=== PATIENT | female | born 1995 | race Caucasian/White ===

== ENCOUNTER 2017-05-21 16:10 | Emergency (ER) | payer SELFPAY ==
[2017-05-21 16:33] VITALS: BP 134/68; PULSE 74; TEMP 97.9; BMI 18.4
--- NOTE | 2017-05-21 17:18 | PDOC ---
History of Present Illness - General History Source: Patient Exam Limitations: No Limitations - History of Present Illness Initial Comments: 05/21/17 17:19 The patient is a 21 year old female, with no significant past medical history, who presents to the emergency department s/p ring finger injury earlier today. The patient reports she was at work when she cut her right hand ring finger with glass. Patient unsure whether there is any remaining glass in her finger. She denies any numbness, tingling, or decreased sensation at the right ring finger or in her hand. She denies any associated active bleeding, erythema, or discharge. She denies any fever or chills. She denies any nausea or vomiting. She denies any other trauma. Patient up to date with tetanus shot. Allergies: NKDA Social History: Social ETOH use. Non smoker. No recreational drug use. <Radhika Isabel - Last Filed: 05/21/17 17:52> <Sagar Edwards - Last Filed: 05/25/17 07:46> - General Chief Complaint: Injury Stated Complaint: RIGHT RING FINGER LACERATION Time Seen by Provider: 05/21/17 17:11 Past History <Radhika Isabel - Last Filed: 05/21/17 17:52> - Past Medical History COPD: No - Immunization History Immunization Up to Date: Yes - Suicide/Smoking/Psychosocial Hx Smoking History: Never smoked Hx Alcohol Use: Yes (SOCIAL) Drug/Substance Use Hx: No Substance Use Type: None <Sagar Edwards - Last Filed: 05/25/17 07:46> - Past Medical History Allergies/Adverse Reactions: Allergies Allergy/AdvReac Type Severity Reaction Status Date / Time No Known Allergies Allergy Verified 05/21/17 16:25 Home Medications: Ambulatory Orders NK [No Known Home Medication] 05/21/17 Review of Systems - Review of Systems Able to Perform ROS?: Yes Comments:: 05/21/17 17:19 CONSTITUTIONAL: Absent: fever, no chills, no fatigue EYES: Absent: visual changes ENT: Absent: ear pain, no sore throat CARDIOVASCULAR: Absent: chest pain, no palpitations RESPIRATORY: Absent: cough, no SOB GI: Absent: abdominal pain, no nausea, no vomiting, no constipation, no diarrhea GENITOURINARY: Absent: dysuria, no frequency, no hematuria MUSKULOSKELETAL: Absent: back pain, no arthralgia, no myalgia SKIN: Present: Right ring finger laceration with associated pain. Absent: rash NEURO: Absent: headache <Jessica [email or web address] - Last Filed: 05/21/17 17:52> *Physical Exam - Vital Signs Last Vital Signs Temp Pulse Resp BP Pulse Ox 97.9 F 74 15 134/68 98 05/21/17 16:24 05/21/17 16:24 05/21/17 16:24 05/21/17 16:24 05/21/17 16:24 - Physical Exam Comments: 05/21/17 17:19 GENERAL: Well-appearing, well-nourished. No apparent distress. HEENT: Normocephalic, atraumatic. PERRL, EOM intact. CARDIOVASCULAR: Normal S1, S2. Regular rate and rhythm. PULMONARY: Clear to auscultation bilaterally. EXTREMITIES: Normal ROM in all four extremities. No gross deformities. SKIN: Longitudinal 1.5 cm laceration involving the proximal and middle phalanges of the radial aspect of the right hand fourth finger. Wound was explored and was superficial involving only the epidermis. No foreign bodies were visualized or palpated. No decreased sensation to the fingertip. Tendon function was preserved with full flexion and extension of both joints againsts resistance. Warm, dry. No rash NEUROLOGICAL: No focal neurological deficits. <Jessica Isabelsabrina - Last Filed: 05/21/17 17:52> - Vital Signs Last Vital Signs Temp Pulse Resp BP Pulse Ox 97.9 F 74 15 134/68 98 05/21/17 16:24 05/21/17 16:24 05/21/17 16:24 05/21/17 16:24 05/21/17 16:24 <Sagar Edwards - Last Filed: 05/25/17 07:46> Procedures - Laceration/Wound Repair Right Hand 4th digit Wound Length: to 2.5 cm Wound Explored: clean, no foreign body present Wound's Depth, Shape: superficial Betadine Prep: Yes Wound Repaired With: Steri-strips Progress: 05/21/17 17:20 Repair finger lac wound was thoroughly scrubbed and irrigated with saline. Hemostasis with pressure. Wound edges were well approximated with steri strips, there was no further bleeding. Tube gauze was applied for splinting, and as a dressing./ Wound care instructions were given. Follow-up immediately if signs of infection. Keep clean and dry, except for Bacitracin until healed. <Radhika Isabel - Last Filed: 05/21/17 17:52> *DC/Admit/Observation/Transfer - Attestations Scribe Attestion: 05/21/17 17:20 Documentation prepared by Radhika Isabel, acting as certified medical coder for Sagar Combs MD. <Radhika Isabel - Last Filed: 05/21/17 17:52> - Discharge Dispostion Admit: No <Sagar Edwards - Last Filed: 05/25/17 07:46> Diagnosis at time of Disposition: Finger laceration Qualifiers: Encounter type: initial encounter Finger: ring finger Damage to nail status: without damage Foreign body presence: without foreign body Laterality: right Qualified Code(s): S61.214A - Laceration without foreign body of right ring finger without damage to nail, initial encounter - Discharge Dispostion Disposition: HOME Condition at time of disposition: Improved - Patient Instructions Printed Discharge Instructions: DI for Laceration Repair Steri-Strips Additional Instructions: Keep clean and dry. Change the dressing on Tuesday as directed. Use bacitracin and a Band-Aid thereafter until completely healed. Keep clean and dry and covered until healing is achieved. Recheck immediately if there is sign of infection, which may be indicated by increased pain, redness, swelling, or discolored drainage. - Post Discharge Activity Forms/Work/School Notes: Back to Work
== END 2017-05-21 17:22 | disposition home or self-care (01) ==
LOC: FER 16:10
CPT/HCPCS: 99282-25

== ENCOUNTER 2020-09-27 23:37 | Emergency (ER) | payer SELFPAY ==
[2020-09-27 23:44] VITALS: TEMP 98.6; BMI 19.1
[2020-09-28] MEDS ORDERED: ACETAMINOPHEN 500 MG TABLET (FP) ONE (00:03)
[2020-09-28] MEDS ORDERED: ACETAMINOPHEN 500 MG TABLET (FP) PO ONE (00:03)
[2020-09-28 00:20] VITALS: BP 117/82; PULSE 73
== END 2020-09-28 00:06 | disposition home or self-care (01) ==
LOC: FER 23:37
DX: T23.101A Burn of first degree of right hand, unspecified site, initial encounter (principal); T23.131A Burn of first degree of multiple right fingers (nail), not including thumb, initial encounter
CPT/HCPCS: 99283-25

== ENCOUNTER 2023-12-30 18:29 | Emergency (ER) | payer OTHER ==
[2023-12-30 18:45] VITALS: BP 110/76; PULSE 74; RESP 17; TEMP 98.1; BMI 24.3
[2023-12-30 19:26] LABS: HEMATOCRIT 38.4 % (32.4-45.2); HEMOGLOBIN 12.6 G/dL (10.7-15.3); MCH 28.1 pg (25.7-33.7); MCHC 32.9 g/dl (32.0-36.0); MEAN CELL VOLUME 85.5 fl (80-96); MEAN PLT VOLUME 8.7 fl (7.5-11.1); PLATELET COUNT 217.4 10^3/uL (134-434); RBC 4.49 10^6/uL (3.60-5.2); RDW 14.6 % (11.6-15.6); WHITE BLOOD COUNT 7.6 10^3/uL (4.0-10.8)
[2023-12-30 19:35] LABS: PLATELET ESTIMATE ADEQUATE
[2023-12-30 19:44] LABS: ALBUMIN 4.1 g/dl (3.4-5.0); BILIRUBIN,TOTAL 0.4 mg/dl (0.2-1); CALCIUM 9.3 mg/dl (8.5-10.1); CREATININE 0.6 mg/dl (0.6-1.3); POTASSIUM 3.9 mmol/L (3.5-5.1); TOT PROT 6.5 g/dl (6.4-8.2)
[2023-12-30] MEDS: ONDANSETRON 4 MG/2 ML VIAL IVPB ONE (20:50)
[2023-12-30] MEDS: SODIUM CHLORIDE 0.9% 500 ML INFUS.BAG IV ONE (20:50)
[2023-12-30] MEDS ORDERED: ONDANSETRON 4 MG/2 ML VIAL ONE (20:53)
== END 2023-12-30 21:14 | disposition home or self-care (01) ==
LOC: FER 18:29
PROC: 3E033GC Introduction of Other Therapeutic Substance into Peripheral Vein, Percutaneous Approach (ICD-10-PCS; principal; 2023-12-30)
DX: O21.9 Vomiting of pregnancy, unspecified (principal); Z3A.00 Weeks of gestation of pregnancy not specified
CPT/HCPCS: 36415; 80053; 81003; 81015; 84702; 85027; 99284-25